=== PATIENT | female | born 1995 | race Caucasian/White ===

== ENCOUNTER 2021-05-07 23:54 | Emergency (ER) | payer OTHER ==
[~2021-05-07] VITALS: Ht 157.5 cm; Wt 52.0 kg
[2021-05-08 00:02] VITALS: BP 122/86
[2021-05-11 04:07] LABS: HIV SCREEN 4G Non Reactive (Non Reactive)
[2021-05-18 08:58] LABS: HBSAG SCREEN Negative (Negative); HEPATITIS C AB <0.1 s/co ratio (0.0-0.9)
== END 2021-05-08 01:04 | disposition home or self-care (01) ==
LOC: ER 23:54
DX: S41.131A Puncture wound without foreign body of right upper arm, initial encounter (principal); W22.8XXA Striking against or struck by other objects, initial encounter; Z20.89 Contact with and (suspected) exposure to other communicable diseases; Y93.89 Activity, other specified; Y92.89 Other specified places as the place of occurrence of the external cause; Y99.0 Civilian activity done for income or pay
CPT/HCPCS: 36415; 80074; 86803; 87340; 87389; 99281